=== PATIENT | female | born 1955 | race Caucasian/White ===

== ENCOUNTER → 2018-06-13 11:36 | Outpatient (CLI) | payer OTHER, SELFPAY ==
--- NOTE | 2018-06-13 | DI.RAD.S_ITS ---
PROCEDURE: XR HIP W PEL IF DONE BILAT 2V INDICATIONS: HIP PAIN TECHNIQUE: AP pelvis with lateral view(s) of the bilateral hip(s). COMPARISON: [facility], , HIP 2V LEFT, 04/12/2012, 15:01. FINDINGS: Bones: No fractures or dislocations. Pelvic ring appears intact. No suspicious bony lesions. Left worse than right bilateral hip joint osteoarthritis is seen with superior joint space narrowing and subchondral sclerosis. No evidence of avascular necrosis. Soft tissues: The visualized bowel gas pattern is normal. No suspicious soft tissue calcifications. IMPRESSION: Left worse than right bilateral hip joint osteoarthritis. Dictated by: Elijah Espinoza M.D. on 06/13/2018 at 12:37 Approved by: Elijah Espinoza M.D. on 06/13/2018 at 12:38
== END ==
PROVIDERS: PCP Internal Medicine; Visit Provider Internal Medicine
DX: M16.0 Bilateral primary osteoarthritis of hip (principal)
CPT/HCPCS: 73521

== ENCOUNTER → 2019-10-04 16:39 | Outpatient (CLI) | payer OTHER, SELFPAY ==
--- NOTE | 2019-10-04 | DI.MG.S_ITS ---
BILATERAL DIGITAL SCREENING MAMMOGRAM 3D/2D WITH CAD: 10/04/2019 CLINICAL: Routine screening. Comparison is made to exams dated: 11/23/2016 mammogram, 07/21/2012 mammogram, and 07/16/2011 mammogram - [facility]. The tissue of both breasts is predominantly fatty. Current study was also evaluated with a Computer Aided Detection (CAD) system. No significant masses, calcifications, or other findings are seen in either breast. There has been no significant interval change. IMPRESSION: NEGATIVE There is no mammographic evidence of malignancy. A 1 year screening mammogram is recommended. This exam was interpreted at Station ID: [id number]. NOTE: For mammograms, a report in lay terms will be sent to the patient. Approximately 15% of breast malignancies will not be visualized mammographically. In the management of a palpable breast mass, a negative mammogram must not discourage biopsy of a clinically suspicious lesion. Electronically Signed By: Dionne low/shelton:10/05/2019 07:22:07 letter sent: Normal Exam ACR BI-RADS Category 1: Negative 3341F
== END ==
PROVIDERS: PCP Internal Medicine; Visit Provider Internal Medicine
DX: Z12.31 Encounter for screening mammogram for malignant neoplasm of breast (principal)
CPT/HCPCS: 77063; 77067

== ENCOUNTER → 2020-05-30 08:16 | Outpatient (CLI) | payer OTHER, SELFPAY ==
--- NOTE | 2020-05-30 | DI.RAD.S_ITS ---
PROCEDURE: XR CHEST 2V INDICATIONS: COUGH TECHNIQUE: 2 views of the chest were acquired. COMPARISON: [facility], , CHEST 1 VIEW, 03/23/2016, 17:06. FINDINGS: Surgical changes and devices: None. Lungs and pleura: Lungs are clear. No pleural effusions or pneumothorax. Mediastinum: Mediastinal contours are normal. Heart size is normal. Bones and chest wall: No suspicious bony abnormalities. Chronic right rib fractures. Soft tissues appear unremarkable. IMPRESSION: No acute disease. Dictated by: Mata Owens M.D. on 05/30/2020 at 10:38 Approved by: Mata Owens M.D. on 05/30/2020 at 10:39
[2020-05-30 09:34] LABS: Add Manual Diff / Slide Review NO; Basophils Absolute Auto 0 /uL (0-100); Basophils Percent Auto 0.7 % (0-2); Eosinophils Absolute Auto 100 /uL (0-450); Eosinophils Percent Auto 2.3 % (2-4); Hematocrit 39.5 % (36-46); Hemoglobin 13.5 g/dL (12.0-16.0); Lymphocytes Absolute Auto 1300 /uL (1100-4500); Mean Corpuscular HGB Conc 34.2 % (30-36); Mean Corpuscular Volume 84.8 fL (80-100); Monocytes Absolute Auto 400 /uL (0-900); Monocytes Percent Auto 7.7 % (3-14); Neutrophils Absolute Auto 2900 /uL (1500-7000); Neutrophils Percent Auto 61.3 % (50-75); Platelet Count 229 X10^3/uL (150-400); Red Blood Cell Count 4.67 X10^6/uL (4.0-5.2); Red Cell Distribution Width 14.9 % (11.6-14.8); White Blood Cell Count 4.8 X10^3/uL (4.5-11.0)
[2020-05-30 10:03] LABS: HEMOLYSIS < 15 (0-50); Iron 90 ug/dL (37-170)
[2020-05-30 10:04] LABS: Alanine Aminotransferase 33 IU/L (<35); Albumin 4.4 g/dL (3.5-5.0); Albumin Globulin Ratio 1.6 (1.0-2.8); Alkaline Phosphatase 121 U/L (38-126); Aspartate Aminotransferase 30 IU/L (14-36); BUN Creatinine Ratio 23.2 (6-22); Bilirubin Total 0.6 mg/dL (0.2-1.3); Blood Urea Nitrogen 16 mg/dL (7-17); Calcium 9.7 mg/dL (8.4-10.2); Carbon Dioxide 30 mmol/L (22-32); Chloride 102 mmol/L (98-107); Cholesterol 181 mg/dL (140-199); Estimated Glomerular Filt Rate > 60.0 mL/min (>60); Globulin 2.8 g/dL (1.7-4.1); Glucose 96 mg/dL (80-110); HDL Cholesterol 67 mg/dL (40-60); HEMOLYSIS < 15 (0-50); LDL Cholesterol Calculated 96 mg/dL (<100); Potassium 5.1 mmol/L (3.4-5.1); Sodium 138 mmol/L (137-145); Total Protein 7.2 g/dL (6.3-8.2); Triglycerides 88 mg/dL (35-150)
[2020-05-30 10:16] LABS: Percent Iron Saturation 24 % (15-50); Total Iron Binding Capacity 376 ug/dL (265-497); Transferrin 309 mg/dL (206-381)
== END ==
PROVIDERS: PCP Internal Medicine; Referring Provider Internal Medicine; Visit Provider Internal Medicine
DX: R07.9 Chest pain, unspecified (principal); D64.9 Anemia, unspecified; R05 Cough
CPT/HCPCS: 36415; 71046; 80053; 80061; 83540; 83550; 85025

== ENCOUNTER → 2021-12-29 13:18 | Outpatient (CLI) | payer MEDICARE, OTHER, SELFPAY ==
--- NOTE | 2021-12-29 | DI.MG.S_ITS ---
BILATERAL DIGITAL SCREENING MAMMOGRAM 3D/2D WITH CAD: 12/29/2021 CLINICAL: Routine screening. Comparison is made to exams dated: 10/04/2019 mammogram, 11/23/2016 mammogram, and 07/21/2012 mammogram - [facility]. The tissue of both breasts is predominantly fatty. Current study was also evaluated with a Computer Aided Detection (CAD) system. No significant masses, calcifications, or other findings are seen in either breast. There has been no significant interval change. IMPRESSION: NEGATIVE There is no mammographic evidence of malignancy. A 1 year screening mammogram is recommended. This exam was interpreted at Station ID: [id number]. NOTE: For mammograms, a report in lay terms will be sent to the patient. Approximately 15% of breast malignancies will not be visualized mammographically. In the management of a palpable breast mass, a negative mammogram must not discourage biopsy of a clinically suspicious lesion. Electronically Signed By: Duke pagan/shelton:12/29/2021 16:53:47 letter sent: Normal Exam ACR BI-RADS Category 1: Negative 3341F
== END ==
PROVIDERS: PCP Family Medicine; Referring Provider Family Medicine; Visit Provider Family Medicine
DX: Z12.31 Encounter for screening mammogram for malignant neoplasm of breast (principal)
CPT/HCPCS: 77063; 77067

== ENCOUNTER → 2022-01-17 15:37 | Outpatient (CLI) | payer MEDICARE, OTHER, SELFPAY ==
[2022-01-17 16:26] LABS: COVID19 -Nasal RAPID Negative (Negative)
== END ==
PROVIDERS: PCP Family Medicine; Visit Provider Physician Assistant
DX: Z20.822 Contact with and (suspected) exposure to COVID-19 (principal)
CPT/HCPCS: 87635

== ENCOUNTER 2022-01-19 13:18 | Day surgery (SDC) | payer MEDICARE, OTHER, SELFPAY ==
--- NOTE | 2022-01-19 13:07 | P.HP_ITS ---
History of Present Illness History of Present Illness Date Patient Seen: 01/19/22 Chief complaint: SCREENING COLONOSCOPY Narrative: 66 year old female comes in today for consideration of a screening colonoscopy. One previous colonoscopy about 10 years ago, unsure of the results but was told that she had a 10 year recall. There have been no lower GI symptoms suggesting disease such as change in bowel habits, bleeding, abdominal pain or anemia. There's been no family history of colon cancer or colon polyps. Overall health issues have been stable, including no major cardiac events for at least 6 weeks. PCP: Dr. Venegas Past medical history: Glaucoma Eczema Past surgical history: Colonoscopy Anal fissure repair secondary to constipation Family History: Father: Heart Disease Mother: HTN, Hyperlipidemia Social History: Marital Status: Children: Occupation: Day Trader- [employer] Household Members: Josemanuel (57 Education: 1 year college Alcohol drinks/day: <1/day Caffeine use/day: 2 Guns in home: yes Dental Care w/in 6 mos.: yes Sun Exposure: occasionally Seat Belt Use: yes Smoking Status: never smoker Drug Use: marijuana gummies Meds Home Medications and Allergies Home Medications Medication Instructions Recorded Confirmed Type No Known Home Medications 01/18/22 01/18/22 History Allergies Allergy/AdvReac Type Severity Reaction Status Date / Time hydrocodone [HYDROCODONE] AdvReac Unknown VOMIT Unverified 01/25/18 13:08 Review of Systems Review of Systems Narrative: All remaining ROS were reviewed and negative except as addressed. Exam Narrative Exam Narrative: GENERAL: Alert and oriented, appearing stated age and in no acute distress. HEENT: Head normocephalic/atraumatic. Extraocular movements intact. LUNGS: Clear to ausculation bilaterally, no wheezes, rhonchi or rales. CV: Normal S1 and S2 with regular rate and rhythm, no audible murmurs, rubs or gallops. ABDOMEN: Soft, non-tender, non-distended, no organomegaly. Positive bowel sounds. EXTREMITIES: No clubbing, cyanosis, or edema. NEURO: Cranial nerves II through XII grossly intact, no focal deficits. PSYCH: Alert and oriented x 3. SKIN: No concerning lesions. Assessment & Plan Assessment & Plan narrative: 1. Screening for colon cancer Plan for colonoscopy. The nature and character of the procedure as well as anticipated results were discussed. The possibility of not completing the procedure was also discussed. Possible complications including aspiration pneumonia, bleeding, perforation and reaction to medications either for sedation or preparation and missed lesions were discussed. Questions were answered and proceeding to the colonoscopy was elected. Informed consent signed. I sincerely appreciate the referral allowing me to participate in this patient's care. Please contact me with any questions or concerns.
--- NOTE | 2022-01-19 13:10 | PM.OP.COLON ---
Operative Date/Time/Diagnoses Date of procedure: 01/19/22 Procedure Notes SCOAP/Timeout: 2:38 p.m. Procedure in detail: ENDOSCOPIST: Yanni Partida MD Sedation RN: Benita Cowan RN Sedation start time: 2:39 p.m. Sedation end time: 3:03 p.m. PROCEDURE: Colonoscopy INDICATIONS: 1. Screening for colon cancer MEDICATION: Levsin 0.125 mg sublingual, incremental doses of Versed and fentanyl until appropriate level sedation achieved. ASA CLASS: 1 CECAL WITHDRAWAL TIME: 6 minutes COMPLICATIONS: None. EXTENT OF PROCEDURE: Cecum. QUALITY OF PREP: Good with portions of liquid stool. PROCEDURE: Prior to insertion of the colonoscope, a digital rectal examination was accomplished with circumferential palpation of the distal rectal mucosa without significant findings being noted. The high-definition pediatric colonoscope was passed into the rectum in the usual fashion and advanced over to the cecum without difficulty. The ileocecal valve, appendiceal stoma, and medial wall all could be inspected and no abnormalities were seen. ASCENDING COLON: As the colonoscope was withdrawn, care was taken to expose and inspect the haustral folds and no abnormalities were seen. HEPATIC FLEXURE: Normal, no polyps, diverticula or other abnormalities. TRANSVERSE COLON: Normal, no polyps, diverticula or other abnormalities. DESCENDING COLON: Minor diverticulosis, otherwise normal, no polyps, or other abnormalities. SIGMOID COLON: Minor diverticulosis, otherwise normal, no polyps, or other abnormalities. RECTUM: Normal. J maneuver was produced. There was no significant perianal disease. The J maneuver was broken. The remainder of the rectum was inspected and there was no external hemorrhoid disease. The scope was withdrawn. IMPRESSION: 1. Normal colonoscopy 2. Left-sided diverticulosis PLAN: 1. Repeat colonoscopy in 10 years. The possibility of a missed lesion including a malignancy has been discussed with the patient previously. Potential alarm symptoms have been discussed and should be reported immediately.
[2022-01-19] MEDS: LACTATED RINGERS 1,000 ML 200 ML IV (13:34)
[2022-01-19] MEDS: HYOSCYAMINE 0.125 MG TABLET PO (13:34)
[2022-01-19 13:38] VITALS: BP 135/68; PULSE 65; RESP 14; TEMP 36.8; O2SAT 99; BMI 28.3
[2022-01-19 13:54] VITALS: BMI 28.3
[2022-01-19] MEDS: ONDANSETRON 4 MG/2 ML INJ IV (14:38)
[2022-01-19] MEDS: fentaNYL 250 MCG/5 ML INJ IV (14:39)
[2022-01-19] MEDS: MIDAZOLAM 5 MG/5 ML VIAL IV (14:39)
[2022-01-19 15:10] VITALS: BP 104/52; PULSE 52; RESP 15; TEMP 37.2; O2SAT 92
[2022-01-19 15:15] VITALS: BP 104/53; PULSE 55; RESP 16; O2SAT 94
[2022-01-19 15:18] VITALS: BP 108/54; PULSE 51; RESP 14; O2SAT 94
[2022-01-19 15:31] VITALS: BP 112/56; PULSE 50; RESP 14; O2SAT 98
== END 2022-01-19 15:41 | disposition home or self-care (01) ==
PROVIDERS: PCP Family Medicine; Referring Provider Student in an Organized Health Care Education/Training Program; Visit Provider Student in an Organized Health Care Education/Training Program
PROC: 0DJD8ZZ Inspection of Lower Intestinal Tract, Via Natural or Artificial Opening Endoscopic (ICD-10-PCS; CPT 45378; principal; 2022-01-19 14:30)
DX: Z12.11 Encounter for screening for malignant neoplasm of colon (principal); K57.30 Diverticulosis of large intestine without perforation or abscess without bleeding
CPT/HCPCS: G0121; J2250; J2405; J3010

== ENCOUNTER → 2022-06-23 13:48 | Outpatient (CLI) | payer MEDICARE, OTHER, SELFPAY ==
--- NOTE | 2022-06-23 13:53 | DI.NM.S_ITS ---
PROCEDURE: NM EXERCISE TREADMILL NON NUC COMPARISON: None. 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 Double product was 19938, consistent with adequate stress test. Patient developed 5/10 chest discomfort during exercise that resolved 5 minutes into recovery. No diagnostic ST changes during the study. Frequent PVCs (including couplets) during recovery. Occasional PACs during recovery. IMPRESSION: Equivocal stress test given chest pain with exercise without diagnostic ST changes. Frequent PVCs during recovery. Adequate stress [place] [address]. Recommend treadmill nuclear stress test or cardiology consult for further evaluation of chest pain (correlate clinically). Dictated by: Frederick Rowland MD on 06/24/2022 at 13:20 Approved by: Frederick Rowland MD on 06/24/2022 at 13:24
[2022-06-23 15:22] LABS: COVID19 -Nasal RAPID Negative (Negative)
== END ==
PROVIDERS: PCP Family Medicine; Referring Provider Family Medicine; Visit Provider Family Medicine
DX: I49.3 Ventricular premature depolarization (principal); R00.0 Tachycardia, unspecified; I02.9 Rheumatic chorea without heart involvement; Z20.822 Contact with and (suspected) exposure to COVID-19; M85.852 Other specified disorders of bone density and structure, left thigh; M85.88 Other specified disorders of bone density and structure, other site; Z78.0 Asymptomatic menopausal state
CPT/HCPCS: 77080; 87635; 93017; C9803

== ENCOUNTER → 2022-07-27 08:44 | Outpatient (CLI) | payer MEDICARE, OTHER, SELFPAY ==
--- NOTE | 2022-07-27 | DI.NM.S_ITS ---
PROCEDURE: NM GINGER PERF SPECT R&S PHARM Rest and pharmacological stress myocardial perfusion SPECT with gated imaging and ejection fraction RADIOPHARMACEUTICAL: 12.9 mCi Tc-99m tetrafosmin IV at rest and 25.9 mCi Tc-99m tetrafosmin IV at peak effect of pharmacological stress. [id number] was performed. INDICATIONS: Tachycardia, unspecified;Angina pectoris TECHNIQUE: Radiopharmaceutical was injected at peak stress test, and also at rest. SPECT images were obtained. SPECT myocardial perfusion images were displayed in short axis, horizontal long axis, and vertical long axis views. Gated images were reviewed using Nanushka software. COMPARISON: None. CARDIAC STRESS: A pharmacologic stress test was performed under the supervision of an attending staff, using an infusion of lexiscan. Hemodynamic data: There is normal blood pressure and heart rate response to pharmacologic stress. Symptoms: The patient developed chest pain with exercise and, thus, requested the study to be switched to lexiscan at 6 minutes and 6 seconds terry. Aminophylline: none EKG: No diagnostic changes of ischemia; no ectopy. FINDINGS: Raw data: There is good myocardial uptake of radiotracer. No significant motion artifacts. Hdbo-bl-uhbsq ratio is 0.34 (normal is less than 0.38 for tetrafosmin tracer). Left ventricle function: Gated images demonstrate normal left ventricular wall thickening. No segmental wall motion abnormalities. No transient ischemic dilation; TID is 0.86 (normal less than 1.3). Left ventricle resting end diastolic volume is 83 mL. Left ventricle stress ejection fraction is 74%; normal range is above 45%. Myocardial perfusion: There is a mildly intense inferior wall defect at rest that worsens to severe on post stress images, suggesting prior small infarction and significant ischemia. The worsened inferior wall defect persists on prone imaging. SSS 12. SRS calculation is inaccurate due to artifacts in the anterior wall. IMPRESSION: Abnormal pharmaceutical nuclear stress test consistent with prior small infarction and significant ischemia. 1) There is a mildly intense inferior wall defect at rest that worsens to severe on post stress images, suggesting prior small infarction and significant ischemia. The worsened inferior wall defect persists on prone imaging. 2) Normal left ventricular size, wall motion, and systolic function (EF post stress 74%). 3) No ST changes with exercise. 4) Chest pain with exercise and, thus, the patient requested that the study be switched to lexiscan at 6 minutes and 6 seconds terry (7.0 METs). 5) No prior nuclear stress test available for comparison. Recommend cardiology consult. Dictated by: Frederick Rowland MD on 07/28/2022 at 14:01 Approved by: Frederick Rowland MD on 07/28/2022 at 14:08
[2022-07-27 10:00] LABS: COVID19 -Nasal RAPID Negative (Negative)
== END ==
PROVIDERS: PCP Family Medicine; Referring Provider Family Medicine; Visit Provider Family Medicine
DX: I20.9 Angina pectoris, unspecified (principal); R94.39 Abnormal result of other cardiovascular function study; R00.0 Tachycardia, unspecified; Z20.822 Contact with and (suspected) exposure to COVID-19
CPT/HCPCS: 78452; 87635; 93017; A9502; J2785

== ENCOUNTER → 2022-07-30 14:13 | Outpatient (CLI) | payer MEDICARE, OTHER, SELFPAY ==
[2022-07-30 15:21] LABS: COVID19 -Nasal RAPID Negative (Negative)
[2022-07-30 15:45] LABS: Add Manual Diff / Slide Review NO; Basophils Absolute Auto 0 /uL (0-100); Basophils Percent Auto 0.7 % (0-2); Eosinophils Absolute Auto 100 /uL (0-450); Eosinophils Percent Auto 1.9 % (2-4); Hematocrit 38.9 % (36-46); Hemoglobin 13.6 g/dL (12.0-16.0); Lymphocytes Absolute Auto 1300 /uL (1100-4500); Lymphocytes Percent Auto 22.1 % (25-40); Mean Corpuscular HGB Conc 34.9 % (30-36); Mean Corpuscular Hemoglobin 29.8 PG (26-34); Mean Corpuscular Volume 85.3 fL (80-100); Monocytes Absolute Auto 300 /uL (0-900); Monocytes Percent Auto 4.9 % (3-14); Neutrophils Absolute Auto 4200 /uL (1500-7000); Neutrophils Percent Auto 70.4 % (50-75); Platelet Count 199 X10^3/uL (150-400); Red Blood Cell Count 4.56 X10^6/uL (4.0-5.2)
[2022-07-30 16:06] LABS: BUN Creatinine Ratio 17.7 (6-22); Blood Urea Nitrogen 11 mg/dL (7-17); Calcium 8.7 mg/dL (8.4-10.2); Carbon Dioxide 30 mmol/L (22-32); Chloride 102 mmol/L (98-107); Estimated Glomerular Filt Rate > 60 mL/min (>60); Glucose 133 mg/dL (80-110); HEMOLYSIS < 15 (0-50); Potassium 3.9 mmol/L (3.4-5.1); Sodium 139 mmol/L (137-145)
== END ==
PROVIDERS: PCP Family Medicine; Referring Provider Internal Medicine Cardiovascular Disease; Visit Provider Internal Medicine Cardiovascular Disease
DX: R94.39 Abnormal result of other cardiovascular function study (principal); Z20.822 Contact with and (suspected) exposure to COVID-19
CPT/HCPCS: 36415; 80048; 85025; 87635; C9803

== ENCOUNTER → 2023-01-10 14:54 | Outpatient (CLI) | payer MEDICARE, OTHER, SELFPAY ==
[2023-01-11 05:00] LABS: Alanine Aminotransferase 29 IU/L (<35); Albumin 4.2 g/dL (3.5-5.0); Albumin Globulin Ratio 1.6 (1.0-2.8); Alkaline Phosphatase 104 U/L (38-126); Aspartate Aminotransferase 26 IU/L (14-36); Bilirubin Total 0.4 mg/dL (0.2-1.3); Globulin 2.6 g/dL (1.7-4.1); HEMOLYSIS < 15 (0-50); Total Protein 6.8 g/dL (6.3-8.2)
== END ==
PROVIDERS: PCP Family Medicine; Referring Provider Podiatrist Foot & Ankle Surgery; Visit Provider Podiatrist Foot & Ankle Surgery
DX: L60.3 Nail dystrophy (principal); B35.1 Tinea unguium
CPT/HCPCS: 36415; 80076

== ENCOUNTER → 2023-03-28 07:58 | Outpatient (CLI) | payer MEDICARE, OTHER, SELFPAY ==
[2023-03-28 09:15] LABS: Add Manual Diff / Slide Review NO; Basophils Absolute Auto 0 /uL (0-100); Eosinophils Absolute Auto 100 /uL (0-450); Eosinophils Percent Auto 2.4 % (2-4); Hematocrit 39.4 % (36-46); Hemoglobin 13.5 g/dL (12.0-16.0); Lymphocytes Absolute Auto 1300 /uL (1100-4500); Lymphocytes Percent Auto 25.9 % (25-40); Mean Corpuscular HGB Conc 34.4 % (30-36); Mean Corpuscular Hemoglobin 29.5 PG (26-34); Mean Corpuscular Volume 85.8 fL (80-100); Monocytes Absolute Auto 400 /uL (0-900); Monocytes Percent Auto 7.5 % (3-14); Neutrophils Absolute Auto 3100 /uL (1500-7000); Neutrophils Percent Auto 63.2 % (50-75); Platelet Count 228 X10^3/uL (150-400); Red Blood Cell Count 4.59 X10^6/uL (4.0-5.2); Red Cell Distribution Width 14.3 % (11.6-14.8); White Blood Cell Count 4.8 X10^3/uL (4.5-11.0)
[2023-03-28 09:38] LABS: BUN Creatinine Ratio 21.5 (6-22); Blood Urea Nitrogen 14 mg/dL (7-17); Calcium 9.6 mg/dL (8.4-10.2); Carbon Dioxide 30 mmol/L (22-32); Chloride 103 mmol/L (98-107); Cholesterol 152 mg/dL (140-199); Estimated Glomerular Filt Rate > 60 mL/min (>60); Glucose 93 mg/dL (80-110); HDL Cholesterol 66 mg/dL (40-60); HEMOLYSIS < 15 (0-50); LDL Cholesterol Calculated 61 mg/dL (<100); Potassium 4.6 mmol/L (3.4-5.1); Sodium 140 mmol/L (137-145); Triglycerides 127 mg/dL (35-150)
== END ==
PROVIDERS: PCP Family Medicine; Referring Provider Internal Medicine Cardiovascular Disease; Visit Provider Internal Medicine Cardiovascular Disease
DX: E78.5 Hyperlipidemia, unspecified (principal); I25.10 Atherosclerotic heart disease of native coronary artery without angina pectoris
CPT/HCPCS: 36415; 80048; 80061; 85025

== ENCOUNTER → 2023-06-06 12:16 | Outpatient (CLI) | payer MEDICARE, OTHER, SELFPAY ==
--- NOTE | 2023-06-06 | DI.RAD.S_ITS ---
PROCEDURE: XR HAND RT MIN 3V INDICATIONS: arthritis TECHNIQUE: 3 views of the hand(s) acquired. COMPARISON: None. FINDINGS: Bones: No fractures or dislocations. Carpal bones are normally aligned. No suspicious bony lesions. Diffuse osteopenia. No other findings which might suggest an inflammatory arthritis. Degenerative arthritis involving the thumb MCP and IP joints. Mild degenerative arthritis involving the 3rd finger PIP and DIP joints. Degenerative arthritis involving the 5th finger PIP and DIP joints. Soft tissues: No suspicious soft tissue calcifications. IMPRESSION: Degenerative arthritis. Osteopenia. Dictated by: Regan Bueno M.D. on 06/06/2023 at 17:41 Approved by: Regan Bueno M.D. on 06/06/2023 at 17:43
--- OUTSIDE RECORDS SUMMARY | 2023-09-16 15:04 | XMS_ITS | Referral Summary ---
Author Name Unknown Organization [facility] Address [address] [place] [address] Care Team Providers Care News Writer Name Role Phone Eric Venegas MD Primary Care Provider Reason for Referral * Diagnostic Imaging (Routine) - Pending Review Specialty Diagnoses / Procedures Referred By Contac t Referred To Contact Radiology Diagnoses ASHD (arteriosclerotic heart disease) History of heart artery stent RIOJAS (dyspnea on exertion) Procedures ECHOCARDIOGRAM STRESS ISCHEMIA Frederick Rowland MD [address] [place] [address] [address] [place] [address] Referral ID Status Reason Start Date Expiration Date Visits Requested Visits Authorized [id number] Pending Review Specialty Services Required 04/07/2023 04/01/2024 1 1 * - Authorized Specialty Diagnoses / Procedures Referred By Contsurjit t Referred To Contact Cardiac Rehabilitation Diagnoses ASHD (arteriosclerotic heart disease) Frederick Rowland MD [address] [place] [address] [address] [place] [address] [id number] Referral ID Status Reason Start Date Expiration Date V isits Requested Visits Authorized [id number] Authorized 04/07/2023 04/01/2024 1 1 Reason for Visit * Reason Comments Follow-up Encounter Details Date Type Department Care Team Description 04/07/2023 Office Visit [facility] [address], [place] [id number] Frederick Rowland MD [address] [place] [address] [address] [place] [address] ASHD (arteriosclerotic heart disease) (Primary Dx); History of heart artery stent; Hyperlipidemia, unspecified hyperlipidemia type; Family history of ischemic heart disease; RIOJAS (dyspnea on exertion) Allergies Active Allergy Reactions Severity Noted Date Comments Hydrocodone Bitartrate 10/28/2015 Hydrocodone-Acetaminophen Nausea And Vomiting Low 0 05/06/2021 documented as of this encounter (statuses as of 04/07/2023) Medications Medication Sig Dispensed Refills Start Date End Date Status timolol (TIMOPTIC) 0.5 % ophthalmic solution 2 (two) times a day 0 Active latanoprost (XALATAN) 0.005 % ophthalmic solution one drop each eye once daily 0 Active desoximetasone (TOPICORT) 0.05 % cream 1 application as needed 0 Active multivitamin (THERAGRAN) tablet tablet Take 1 tablet by mouth daily 0 Active nitroglycerin (NITROSTAT) 0.[address] 1 tablet (0.4 mg total) under the tongue every 5 (five) minutes as needed for chest pain 25 tablet 11 07/29/2022 07/29/20 23 Active aspirin 81 mg chewable tablet Take 1 tablet (81 mg total) by mouth daily 90 tablet 3 07/29/2022 07/29/20 23 Active terbinafine (LamiSIL) 250 mg tablet Take 1 pill per day by mouth for 1 week. Rest for 1 month. Repeat for 6 months. 84 tablet 0 01/12/2023 Active rosuvastatin (CRESTOR) 5 mg tablet Take 1 tablet (5 mg total) by mouth daily 90 tablet 3 04/07/2023 04/06/20 24 Active metoprolol succinate XL (TOPROL-XL) 25 mg 24 hr tablet Take 1 tablet (25 mg total) by mouth daily 90 tablet 3 04/07/2023 04/06/20 24 Active rosuvastatin (CRESTOR) 5 mg tablet Take 1 tablet (5 mg total) by mouth daily 0 06/02/2022 04/07/20 23 Discontinued(Reo rder) metoprolol succinate XL (TOPROL-XL) 25 mg 24 hr tablet daily 0 07/29/2022 04/07/20 23 Discontinued(Reo rder) clopidogreL (PLAVIX) 75 mg tablet Take 1 tablet (75 mg total) by mouth daily 90 tablet 3 08/02/2022 04/07/20 23 Discontinued documented as of this encounter (statuses as of 04/07/2023) Active Problems No known active problems documented as of this encounter (statuses as of 04/07/2023) Social History Tobacco Use Types Packs/Day Years Used Date Smoking Tobacco: Never Smokeless Tobacco: Never Alcohol Use Standard Drinks/Week Comments Yes 10 (1 standard drink = 0.6 oz pu re alcohol) Sex Assigned at Date Recorded Female 07/30/2022 8:10 PM P DT Job Start Date Occupation Industry Not on file Not on file Not on file documented as of this encounter Last Filed Vital Signs Vital Sign Reading Time Taken Comments Blood Pressure 128/84 04/07/2023 1:48 PM PDT Pulse 52 04/07/2023 1:16 PM PDT Temperature - - Respiratory Rate - - Oxygen Saturation - - Inhaled Oxygen Concentration - - Weight 81.6 kg (180 lb) 04/07/2023 1:16 PM PDT Height 165.1 cm (5' 5) 04/07/2023 1:16 PM PDT Body Mass Index 29.95 04/07/2023 1:16 PM PDT documented in this encounter Progress Notes * Frederick Rowland MD - 04/07/2023 1:20 PM PDT Ok to stop clopidogrel when you finish your current supply. * Frederick Rowland MD - 04/07/2023 1:20 PM PDT Subjective Patient ID: Melvi Teresa is a 67 y.o. female that presents today for had concerns including Follow-up. HPI: 66 yo W here h/o CAD here for F/U on her CAD. She is here with her . Since her last visit, she has done well. She has random non-exertional chest pains that last few minutes before self resolving. These pains are different than the exertional chest pain she had prior to stent placement in 07/2022. She has mild dyspnea while climbing up a flight of stairs. Denies heart racing sensations, lightheadedness or syncope. PROBLEM LIST: # CAD S/P SHELLIE to dRCA, 50-60% stenosis in the mLCx on 07/2022. Family history of early cardiac in sister ( in her 40s). Dad had OR in his 40s. Social History Socioeconomic History ??? Marital status: Tobacco Use ??? Smoking status: Never ??? Smokeless tobacco: Never Substance and Sexual Activity ??? Alcohol use: Yes Alcohol/week: 10.0 standard drinks Types: 10 Glasses of wine per week ??? Drug use: Yes Types: Marijuana Allergies Allergen Reactions ??? Hydrocodone Bitartrate ??? Hydrocodone-Acetaminophen Nausea And Vomiting Current Medication List Sig aspirin 81 mg chewable tablet Take 1 tablet (81 mg total) by mouth daily desoximetasone (TOPICORT) 0.05 % cream 1 application as needed latanoprost (XALATAN) 0.005 % ophthalmic solution one drop each eye once daily multivitamin (THERAGRAN) tablet tablet Take 1 tablet by mouth daily nitroglycerin (NITROSTAT) 0.[address] 1 tablet (0.4 mg total) under the tongue every 5 (five) minutes as needed for chest pain terbinafine (LamiSIL) 250 mg tablet Take 1 pill per day by mouth for 1 week. Rest for 1 month. Repeat for 6 months. timolol (TIMOPTIC) 0.5 % ophthalmic solution 2 (two) times a day clopidogreL (PLAVIX) 75 mg tablet (Discontinued) Take 1 tablet (75 mg total) by mouth daily metoprolol succinate XL (TOPROL-XL) 25 mg 24 hr tablet (Discontinued) daily rosuvastatin (CRESTOR) 5 mg tablet (Discontinued) Take 1 tablet (5 mg total) by mouth daily metoprolol succinate XL (TOPROL-XL) 25 mg 24 hr tablet Take 1 tablet (25 mg total) by mouth daily rosuvastatin (CRESTOR) 5 mg tablet Take 1 tablet (5 mg total) by mouth daily Review of Systems Constitutional: Negative for fatigue and unexpected weight change. Eyes: Negative for visual disturbance. Respiratory: Positive for shortness of breath. Negative for chest tightness. Cardiovascular: Positive for chest pain. Negative for palpitations and leg swelling. Gastrointestinal: Negative for blood in stool. Endocrine: Negative for polydipsia. Genitourinary: Negative for hematuria. Skin: Negative for rash. Neurological: Negative for dizziness, weakness and light-headedness. Hematological: Does not bruise/bleed easily. Psychiatric/Behavioral: The patient is not nervous/anxious. All other systems reviewed and are negative. Objective BP 128/84 (BP Location: Left arm, Patient Position: Sitting) Pulse (!) 52 Ht 1.651 m Wt 81.6 kg BMI 29.95 kg/m?? Physical Exam: General appearance: No apparent distress, well-nourished, pleasant, cooperative HEET: Normocephalic atraumatic, no scleral icterus, tongue midline, mucous membranes moist Neck: supple Cardiovascular: RRR, normal S1 and normal S2, no murmurs/ rubs/gallops, PMI nondisplaced, no JVD, no peripheral edema Respiratory: Good aeration, CTAB Abdomen: Soft, nontender, nondistended, + bowel sounds Neuro: Alert, no facial droop, tongue midline, no gross motor deficits Psych: appropriate affect Skin: no rashes on face, neck, and lower extremities Cath 08/02/2022: SHELLIE to dRCA, 50-60% stenosis in the mLCx. Nuc stress at 07/28/2022. Abnormal pharmaceutical nuclear stress test consistent with prior small infarction and significant ischemia. 1. There is a mildly intense inferior wall defect at rest that worsens to severe on post stress images, suggesting prior small infarction and significant ischemia. The worsened inferior wall defect persists on prone imaging. 2. Normal left ventricular size, wall motion, and systolic function (EF post stress 74%). 3. No ST changes with exercise. 4. Chest pain with exercise and, thus, the patient requested that the study be switched to lexiscanat 6 minutes and 6 seconds terry (7.0 METs). 5. No prior nuclear stress test available for comparison. Labs 11/18/2021: WBC 4.9, RBC 4.5, hemoglobin 13.2, hematocrit 38.9, platelet 236, TSH 2.82, total cholesterol 182, HDL 71, triglycerides 69, LDL 97, sodium 140, potassium 4.5, chloride 104, CO2 30, anion gap 6, glucose 61, BUN 13, creatinine 0.66, calcium 9.4, AST 16, ALT 16 Labs 03/28/2023: sodium 140, potassium 4.6, chloride 103, cO2, CO2 30, BUN 14, Cr 0.65, TG 127, TC 152, HDL 66, LDL 61, WBC 4.8, Hct 39.4, Plt 228 Assessment/Plan Comments: 1. ASHD (arteriosclerotic heart disease) Ambulatory Referral to Cardiac Rehabilitation, ECHOCARDIOGRAM STRESS ISCHEMIA 2. History of heart artery stent ECHOCARDIOGRAM STRESS ISCHEMIA 3. Hyperlipidemia, unspecified hyperlipidemia type 4. Family history of ischemic heart disease 5. RIOJAS (dyspnea on exertion) ECHOCARDIOGRAM STRESS ISCHEMIA # CAD s/p SEHLLIE to dRCA, 50-60% stenosis in the mLCx on 07/2022. Angina resolved after PCI. Plan: - Continue aspirin 81mg daily - Stop clopidogrel 75mg daily once out of the current bottle as it has been more than 6 months since the elective PCI - Continue rosuvastatin 5mg at bedtime - Continue metoprolol XL 12.5mg daily - Continue nitro SL PRN chest pain - Refer to cardiac rehab F/U in 6 months with stress echo. Electronically signed by Frederick Rowland MD 04/07/2023 1:48 PM documented in this encounter Plan of Treatment Upcoming Encounters Date Type Specialty Care Team Description 10/14/2023 Office Visit Cardiology Frederick Rowland MD [address] [place] [id number] Scheduled Orders Name Type Priority Associated Diagnoses Orde r Schedule ECHOCARDIOGRAM STRESS ISCHEMIA Imaging Routine ASHD (arteriosclerotic heart disease) History of heart artery stent RIOJAS (dyspnea on exertion) Expected: 10/07/2023, Expires: 04/07/2025 Scheduled Referrals Name Type Priority Associated Diagnoses Order Schedule Ambulatory Referral to Cardiac Rehabilitation Outpatient Referral Routine ASHD (arteriosclerotic heart disease) Ordered: 04/07/2023 documented as of this encounter Medical Devices Implanted Type Area Records Coordinator Device Identifier Shelf Expiration Date Model / Serial / Lot Stent, [id number] [place] - [id number] Implanted:Qty: 1 on 08/02/2022 at [facility] [employer] [id number] X / / documented as of this encounter Visit Diagnoses Diagnosis ASHD (arteriosclerotic heart disease)- Primary Coronary atherosclerosis of unspecified type of vessel, [place] or graft History of heart artery stent Hyperlipidemia, unspecified hyperlipidemia type Family history of ischemic heart disease RIOJAS (dyspnea on exertion) Other dyspnea and respiratory abnormality documented in this encounter Advance Directives Latest Code Status on File Code Status Date Activated Date Inactivated Comments Full Code 08/02/2022 3:11 PM 08/03/2022 2:34 AM Care Teams News Writer Relationship Specialty Start Date End Date Eric Venegas MD [address] [place] [id number] PCP - General Family Medicine 07/29/22 documented as of this encounter
== END ==
PROVIDERS: PCP Family Medicine; Referring Provider Family Medicine; Visit Provider Family Medicine
DX: M19.041 Primary osteoarthritis, right hand (principal); M85.841 Other specified disorders of bone density and structure, right hand
CPT/HCPCS: 73130

== ENCOUNTER 2023-09-06 17:03 | Emergency (ER) | payer MEDICARE, OTHER, SELFPAY ==
[2023-09-06] VITALS (9 sets, daily range): BP systolic 163–173; BP diastolic 71–103; PULSE 54–68; RESP 16–23; TEMP 36.4; O2SAT 95–100; BMI 28.3
--- NOTE | 2023-09-06 17:23 | DI.CT.S_ITS ---
PROCEDURE: CT HEAD/BRAIN WO CON INDICATIONS: dizziness TECHNIQUE: Noncontrast 4.5 mm thick angled axial sections acquired from the foramen magnum to the vertex, with coronal and sagittal reformats. For radiation dose reduction, the following was used: automated exposure control, adjustment of mA and/or kV according to patient size. COMPARISON: [facility], CT, HEAD WITHOUT CONTRAST, 03/23/2016, 17:00. FINDINGS: Image quality: Excellent. CSF spaces: Basal cisterns are patent. No extra-axial fluid collections. Ventricles are normal in size and shape. Brain: No midline shift. No intracranial masses or hemorrhage. Pollard-white matter interface is normal. Skull and face: Calvarium and visualized facial bones are intact, without suspicious lesions. Sinuses: Visualized sinuses and mastoids are clear. IMPRESSION: Normal CT of the brain Approved by: Willian Malone M.D. on 09/06/2023 at 17:14
--- NOTE | 2023-09-06 17:23 | DI.RAD.S_ITS ---
PROCEDURE: XR CHEST 1V INDICATIONS: chest pain TECHNIQUE: One view of the chest was acquired. COMPARISON: [facility], [place], XR CHEST 2V, 05/30/2020, 8:22. [facility], , CHEST 1 VIEW, 03/23/2016, 17:06. FINDINGS: Surgical changes and devices: None. Lungs and pleura: Lungs are clear. No pleural effusions or pneumothorax. Mediastinum: Mediastinal contours appear normal. Heart size is normal. Bones and chest wall: No suspicious bony lesions. Overlying soft tissues appear unremarkable. Healed right posterior rib fractures. IMPRESSION: No acute cardiopulmonary abnormality is seen. Dictated by: Emigdio Barrow M.D. on 09/06/2023 at 18:25 Approved by: Emigdio Barrow M.D. on 09/06/2023 at 18:25
[2023-09-06 18:24] LABS: Bacteria Urine Occasional (0-1); Culture Indicated Urine Specimen Cultured; RBC Urine 0-1/HPF (0-5/HPF); Squamous Epithelial Cell Urine 0-1 /HPF (0-5/HPF); WBC Urine 0-1/HPF (0-5/HPF)
[2023-09-06 19:58] LABS: Add Manual Diff / Slide Review NO; Basophils Absolute Auto 100 /uL (0-100); Basophils Percent Auto 1.4 % (0-2); Eosinophils Absolute Auto 200 /uL (0-450); Hematocrit 38.1 % (36-46); Hemoglobin 13.1 g/dL (12.0-16.0); Lymphocytes Absolute Auto 1500 /uL (1100-4500); Lymphocytes Percent Auto 33.4 % (25-40); Mean Corpuscular HGB Conc 34.3 % (30-36); Mean Corpuscular Hemoglobin 29.3 PG (26-34); Mean Corpuscular Volume 85.5 fL (80-100); Monocytes Absolute Auto 400 /uL (0-900); Monocytes Percent Auto 8.4 % (3-14); Neutrophils Absolute Auto 2400 /uL (1500-7000); Neutrophils Percent Auto 52.8 % (50-75); Platelet Count 182 X10^3/uL (150-400); Red Blood Cell Count 4.46 X10^6/uL (4.0-5.2); Red Cell Distribution Width 14.3 % (11.6-14.8); White Blood Cell Count 4.6 X10^3/uL (4.5-11.0)
[2023-09-06 20:08] LABS: Alanine Aminotransferase 46 IU/L (<35); Albumin 4.4 g/dL (3.5-5.0); Albumin Globulin Ratio 1.4 (1.0-2.8); Alkaline Phosphatase 105 U/L (38-126); Aspartate Aminotransferase 50 IU/L (14-36); BUN Creatinine Ratio 30.2 (6-22); Bilirubin Total 0.6 mg/dL (0.2-1.3); Blood Urea Nitrogen 16 mg/dL (7-17); Calcium 9.2 mg/dL (8.4-10.2); Carbon Dioxide 25 mmol/L (22-32); Chloride 104 mmol/L (98-107); Creatine Kinase 72 U/L (30-135); Estimated Glomerular Filt Rate > 60 mL/min (>60); Globulin 3.2 g/dL (1.7-4.1); Glucose 87 mg/dL (80-110); Magnesium 2.1 mg/dL (1.6-2.3); Potassium 4.3 mmol/L (3.4-5.1); Sodium 136 mmol/L (137-145); Total Protein 7.6 g/dL (6.3-8.2)
[2023-09-06 20:19] LABS: Troponin I < 0.012 ng/mL (0.01-0.034)
[2023-09-06 20:22] LABS: INR 1.6 (0.9-1.3); Prothrombin Time 18.7 SECONDS (9.4-12.5)
[2023-09-06 20:25] LABS: PTT Partial Thromboplastin Tim 39 SECONDS (25.1-36.5)
[2023-09-06 20:32] LABS: HEMOLYSIS 20 (0-50); Lipase 376 U/L (23-300)
[2023-09-07] VITALS (7 sets, daily range): BP systolic 137–161; BP diastolic 60–70; PULSE 51–55; RESP 13–25; O2SAT 96–99
--- NOTE | 2023-09-07 01:55 | ED_ITS ---
HPI - General Adult General Chief complaint: Dizziness Stated complaint: Light headed, BP 174/70 HR 57 Time Seen by Provider: 09/07/23 01:54 Source: patient Mode of arrival: Ambulatory History of Present Illness HPI narrative: 67-year-old woman with a history of cardiac disease, stent placement about a year ago, hyperlipidemia and hypertension treated with metoprolol who presents with an episode of feeling ?not right?. She is somewhat concerned because when she had her cardiac events that led to the stent she had very minimal symptoms she was not able to clearly identify. She notes that she had her RSV and COVID shots 5 days ago and noted significant fevers and myalgias for approximately 24 hours after that. She is been doing well until today when she was at work and in the early afternoon she began to feel somewhat lightheaded, dizzy low-grade headache she drank quite a bit of water did not seem to help. She is increasingly nauseated and went outside to see if this might help clear her head. She then called her and they went to the grocery store to check her blood pressure and noted that it was elevated with a low heart rate. They do not remember the specifics. At that point they came to the emergency department for further evaluation. She states that she does have a blood pressure cuff at home has not been checking regularly is taking her metoprolol regularly. She has not been having chest pain, dyspnea, orthopnea, palpitations, lower extremity edema, she describes no additional neurologic symptoms. Related Data Home Medications Medication Instructions Recorded Confirmed No Known Home Medications 01/18/22 01/18/22 Allergies Allergy/AdvReac Type Severity Reaction Status Date / Time hydrocodone [HYDROCODONE] AdvReac Unknown VOMIT Verified 01/19/22 15:23 Review of Systems Review of Systems Narrative: Pertinent positive and negative findings as per HPI Patient History Medical History (Updated 09/07/23 @ 02:22 by Taina Poon MD) Hyperlipidemia Hypertension Coronary artery disease Social History household members: spouse Smoking Status: Never smoker alcohol intake: current Smoking Status: Never smoker alcohol intake frequency: a few times a week Substance Use Type: does not use Exam Initial Vital Signs Initial Vital Signs: Vital Signs Temperature 97.5 F L 09/06/23 17:08 Pulse Rate 56 L 09/06/23 17:08 Respiratory Rate 16 09/06/23 17:08 Blood Pressure 173/103 H 09/06/23 17:08 Pulse Oximetry 100 09/06/23 17:08 Oxygen Delivery Method Room Air 09/06/23 17:08 General: Healthy appearing, in no acute distress. Able to give a complete and coherent history. Well-nourished well-developed HEENT: Moist mucous membranes, normal sclera with reactive pupils, tympanic membranes are pearly almaraz bilaterally, she has no cervical adenopathy Neck: No JVD, supple Respiratory: Lungs are clear to auscultation, no wheezing no rales no rhonchi. Full and symmetrical air movement Cardiac: Regular rate and rhythm no murmurs no bruits Abdomen: Soft, nontender, good bowel tones, no flank pain Skin: Warm and dry, no rashes Neurologic: Grossly neurologically intact with no obvious asymmetries or abnormalities Extremities: No trauma, well perfused Psych: Cooperative, appropriate insight and affect Course Orders Ordered: ED Orders 09/06/23 17:23 CT head/brain wo con Stat XR chest 1V Stat EKG-12 Lead Stat 09/06/23 17:30 Urine Culture Stat Urine Microscopic Stat 09/06/23 19:45 Complete Blood Count AUTO DIFF Stat Comprehensive Metabolic Panel Stat Lipase Stat Magnesium Stat PTT Partial Thromboplastin Harry Stat Prothrombin Time INR Stat Troponin & CK Cardiac Panel Stat Vital Signs Vital signs: Vital Signs - 8 hr 09/06/23 20:57 09/06/23 21:00 09/06/23 21:30 Pulse Rate 55 L 68 59 L Respiratory Rate 23 Blood Pressure Pulse Oximetry 100 98 98 Oxygen Delivery Method Room Air Room Air Room Air 09/06/23 22:00 09/06/23 22:30 09/06/23 23:00 Pulse Rate 58 L 54 L 54 L Respiratory Rate 20 22 20 Blood Pressure Pulse Oximetry 98 95 97 Oxygen Delivery Method Room Air Room Air 09/06/23 23:30 09/06/23 23:44 09/06/23 23:44 Pulse Rate 55 L 58 L Respiratory Rate 19 Blood Pressure 163/71 H Pulse Oximetry 98 98 Oxygen Delivery Method 09/07/23 00:00 09/07/23 00:00 Pulse Rate 55 L Respiratory Rate 25 H Blood Pressure 138/63 Pulse Oximetry 96 Oxygen Delivery Method Medical Decision Making Lab Data 09/06/23 19:45 09/06/23 19:45 Labs: Lab Results 09/06/23 09/06/23 Range/Units 17:30 19:45 WBC 4.6 (4.5-11.0) X10^3/uL RBC 4.46 (4.0-5.2) X10^6/uL Hgb 13.1 (12.0-16.0) g/dL Hct 38.1 (36-46) % MCV 85.5 (80-100) fL MCH 29.3 (26-34) PG MCHC 34.3 (30-36) % RDW 14.3 (11.6-14.8) % Plt Count 182 (150-400) X10^3/uL Neut % (Auto) 52.8 (50-75) % Lymph % (Auto) 33.4 (25-40) % [place] % (Auto) 8.4 (3-14) % Eos % (Auto) 4.0 (2-4) % Baso % (Auto) 1.4 (0-2) % Neut # (Auto) 2400 (9692-5509) /uL Lymph # (Auto) 1500 (1200-5330) /uL [place] # (Auto) 400 (0-900) /uL Eos # (Auto) 200 (0-450) /uL Baso # (Auto) 100 (0-100) /uL PT 18.7 H (9.4-12.5) SECONDS INR 1.6 H (0.9-1.3) APTT 39 H (25.1-36.5) SECONDS Sodium 136 L (137-145) mmol/L Potassium 4.3 (3.4-5.1) mmol/L Chloride 104 (98-107) mmol/L Carbon Dioxide 25 (22-32) mmol/L BUN 16 (7-17) mg/dL Creatinine 0.53 (0.52-1.04) mg/dL Estimated GFR > 60 (>60) mL/min BUN/Creatinine Ratio 30.2 H (6-22) Glucose 87 (80-110) mg/dL Calcium 9.2 (8.4-10.2) mg/dL Magnesium 2.1 (1.6-2.3) mg/dL Total Bilirubin 0.6 (0.2-1.3) mg/dL AST 50 H (14-36) IU/L ALT 46 H (<35) IU/L Alkaline Phosphatase 105 (38-126) U/L Total Creatine Kinase 72 (30-135) U/L Troponin I < 0.012 (0.01-0.034) ng/mL Total Protein 7.6 (6.3-8.2) g/dL Albumin 4.4 (3.5-5.0) g/dL Globulin 3.2 (1.7-4.1) g/dL Albumin/Globulin Ratio 1.4 (1.0-2.8) Lipase 376 H (23-300) U/L Urine RBC 0-1/hpf (0-5/HPF) Urine WBC 0-1/hpf (0-5/HPF) Ur Squamous Epith Cells 0-1 /hpf (0-5/HPF) Urine Bacteria Occasional (0-1) (None) Ur Culture Indicated? Specimen cultured Urine Dip Bedside Urine Glucose Negative Bedside Urine Bilirubin - Negative Bedside Urine Ketone - Negative Urine Specific [place] 1.005 Bedside Urine Occult Blood - Negative Bedside Urine pH 7 Bedside Urine Protein - Negative Bedside Urine Urobilinogen - Negative Bedside Urine Nitrite - Negative Bedside Urine Leukocytes + 70 Esterase Point of care testing: Urine Dip Bedside Urine Glucose Negative Bedside Urine Bilirubin - Negative Bedside Urine Ketone - Negative Urine Specific [place] 1.005 Bedside Urine Occult Blood - Negative Bedside Urine pH 7 Bedside Urine Protein - Negative Bedside Urine Urobilinogen - Negative Bedside Urine Nitrite - Negative Bedside Urine Leukocytes + 70 Esterase MDM Narrative Medical decision making narrative: CC: Dizziness in the vague feeling of unease Complicating co-morbidities: Coronary artery disease hypertension hyperlipidemia Data collected from: patient, Medical records reviewed: Medical records are not available, history is obtained from the patient Differential considered: Stroke, viral syndrome, adverse reaction after recent immunizations, hypertensive crisis, acute coronary syndrome Exam documented above, pertinent findings include: Exam is entirely benign. Lab Test results independently reviewed as above. Pertinent findings: CBC is reassuring Chemistries are appropriate, she does have minimally elevated AST and ALT with normal bilirubin and alkaline phosphatase Urine does not show urinary tract infection Independently reviewed EKG sinus rhythm at a rate of 60. Normal intervals, normal axis, no acute ischemic changes Imaging studies independently reviewed: CT scan of the head shows no acute intracranial abnormalities, bleeding or mass effect Chest x-ray is reassuring no acute pulmonary disease Discussion: 67-year-old woman presents with a sense of unease, dizziness head tightness onset early this afternoon. On initial arrival she was quite anxious and concerned that she was having some type of coronary event. Initial blood pressure was elevated at 170 3/103. There were no additional interventions and blood pressure has come down nicely most recently 138/68 with a heart rate of 55. She has had extended ER visit due to volumes and has been on telemetry much of that time. There have been no cardiac rhythm significant changes. Her exam is entirely benign labs are reassuring I am not seeing any sign of acute bacterial infection, stroke, acute coronary event or alternate explanation that would require additional imaging or hospitalization. Her blood pressure may be trending high however with most of the numbers actually looking more reassuring my recommendation was to check her blood pressure on a regular basis and review overall readings an average blood pressure findings with her primary care doctor. At this point she is safe for discharge. I have encouraged her to continue all current medications without changes Discharge Plan Departure Patient Disposition: Home Clinical Impression: Dizziness Instructions: DI for Dizziness-Nonvertigo Activity Restrictions/Additional Instructions: Thank you for coming in today Your workup today does not show any signs of bleeding inside your head, a stroke, acute heart attack, severe bacterial infection, electrolyte abnormalities, heart or liver problems or urinary tract infection. Your blood pressure was elevated on arrival however it has trended down nicely. Sometimes it is hard to tell if it is blood pressure that is causing your symptoms or these symptoms that are elevating your blood pressure. At this point I am not seeing any life-threatening abnormalities that would require additional workup or hospitalization. I am glad that you are feeling slightly better. I do not know if these symptoms might be related to your recent COVID and RSV vaccines 5 days ago but I suppose that is certainly a possibility. Regarding your blood pressure, I would recommend that you take your blood pressure daily at home to discuss with your primary doctor. It is the average blood pressure reading that is going to be important in helping to side of blood pressure medications need to be changed. If your blood pressure reading is elevated, you do not need to come to the emergency department unless the elevated blood pressure reading is also associated with stroke-like symptoms, severe headache chest pressure or shortness a breath. Blood pressure, even very high readings, is best treated with oral medication as an outpatient to gradually lower numbers to the desired goals. If you find that you are getting worse or develop any new symptoms, please feel free to return to the emergency department for further evaluation. Prescriptions: No Action No Known Home Medications Referrals: Eric Venegas MD [Primary Care Provider] - Stand Alone Forms: Patient Portal/API
== END 2023-09-07 02:34 | disposition home or self-care (01) ==
PROVIDERS: Emergency Medicine; Emergency Provider Emergency Medicine; PCP Family Medicine
DX: R42 Dizziness and giddiness (principal); R51.9 Headache, unspecified; I10 Essential (primary) hypertension
CPT/HCPCS: 36415; 70450; 71045; 80053; 81003; 81015; 82550; 83690; 83735; 84484; 85025; 85610; 85730; 87086; 87147; 93005; 93010; 99284

== ENCOUNTER 2024-02-09 08:22 | Emergency (ER) | payer MEDICARE, OTHER, SELFPAY ==
[2024-02-09 08:30] VITALS: BP 155/70; PULSE 51; RESP 14; TEMP 36.6; O2SAT 97; BMI 28.3
--- NOTE | 2024-02-09 08:31 | DI.RAD.S_ITS ---
PROCEDURE: XR WRIST RT MIN 3V INDICATIONS: pain after fall TECHNIQUE: 3 views of the wrist were acquired. COMPARISON: None. FINDINGS: Bones: Acute impacted fracture involving distal radius is seen with fracture line extending to radiocarpal joint space and slight dorsal tilt of the distal radius at the fracture site. No suspicious bony lesions. Soft tissues: Surrounding soft tissue swelling is seen. No suspicious soft tissue calcifications. IMPRESSION: Acute comminuted, impacted and slightly displaced intra-articular fracture of distal radius as above. Dictated by: Elijah Espinoza M.D. on 02/09/2024 at 9:00 Approved by: Elijah Espinoza M.D. on 02/09/2024 at 9:00
--- NOTE | 2024-02-09 09:07 | ED.GENADULT ---
HPI - General Adult General Chief complaint: Extremity Injury, Upper Stated complaint: Thinks she broke her right Wrist Time Seen by Provider: 02/09/24 08:31 Source: patient Mode of arrival: Ambulatory Limitations: no limitations History of Present Illness HPI narrative: Patient is a 68-year-old female who is here for evaluation of a right wrist pain. She was outside working in his barn when she slipped and fell and landed on an outstretched hand. Does have some elbow discomfort but most of the discomfort is coming from her right wrist. No other injuries from the event. Related Data Previous Rx's Medication Instructions Recorded oxycodone-acetaminophen 5 mg-325 1 tab PO Q6H PRN pain #14 tabs 02/09/24 mg tablet (Percocet) Allergies Allergy/AdvReac Type Severity Reaction Status Date / Time hydrocodone [HYDROCODONE] AdvReac Unknown VOMIT Verified 01/19/22 15:23 Review of Systems Musculoskeletal Musculoskeletal: Reports system reviewed and no additional complaints, except as documented Integumentary/Breasts Skin/Breast: Reports system reviewed and no additional complaints, except as documented Hematologic/Lymphatic On Anticoagulants: No Patient History Medical History Hyperlipidemia Hypertension Coronary artery disease Social History household members: spouse Smoking Status: Never smoker alcohol intake: current Smoking Status: Never smoker alcohol intake frequency: a few times a week Substance Use Type: does not use Exam Initial Vital Signs Initial Vital Signs: Vital Signs Temperature 97.8 F 02/09/24 08:30 Pulse Rate 51 L 02/09/24 08:30 Respiratory Rate 14 02/09/24 08:30 Blood Pressure 155/70 H 02/09/24 08:30 Pulse Oximetry 97 02/09/24 08:30 Oxygen Delivery Method Room Air 02/09/24 08:30 Const General: cooperative and comfortable Cardio Pulses: radial pulses present on the right Skin General: no rashes or lesions noted Neuro Sensory Exam: no sensory deficits noted Extrem Other: Discomfort with palpation or any movement of the right wrist. She was able to flex and extend of the right elbow. Right shoulder is unremarkable. Right hand is unremarkable. Procedures Orthopedic Splinting/Casting Injury #1: Side: right Upper Extremity Injury Location: wrist Upper Extremity Immobilizer: sugar tong splint Other Orthopedic Equipment: other (Sling) Post splinting neuro exam: no change Post splinting vascular exam: no change Placed by: Provider Course Orders Ordered: ED Orders 02/09/24 08:31 XR wrist RT min 3V Stat Discontinued Medications Oxycodone/Acetaminophen (Oxycodone/Acetaminophen 5/325 Tablet) 1 tab PO NOW ONE Stop: 02/09/24 09:08 Last Admin: 02/09/24 09:16 Dose: 1 tab Documented By: VALERIY Vital Signs Vital signs: Vital Signs - 8 hr 02/09/24 08:30 Temperature 97.8 F Pulse Rate 51 L Respiratory Rate 14 Blood Pressure 155/70 H Pulse Oximetry 97 Oxygen Delivery Method Room Air Medical Decision Making Imaging Data Extremity x-ray #1: Radiologist's Impression: PROCEDURE: XR WRIST RT MIN 3V INDICATIONS: pain after fall TECHNIQUE: 3 views of the wrist were acquired. COMPARISON: None. FINDINGS: Bones: Acute impacted fracture involving distal radius is seen with fracture line extending to radiocarpal joint space and slight dorsal tilt of the distal radius at the fracture site. No suspicious bony lesions. Soft tissues: Surrounding soft tissue swelling is seen. No suspicious soft tissue calcifications. IMPRESSION: Acute comminuted, impacted and slightly displaced intra-articular fracture of distal radius as above. MDM Narrative Medical decision making narrative: Patient is neurovascularly intact. Has a right wrist fracture that was splinted as described above. No other injuries from the event. Will discharge patient home in a splint. She was given care instructions and return precautions. She expressed understanding and agreement. Discharge Plan Departure Patient Disposition: Home Clinical Impression: Fracture of wrist Instructions: DI for Wrist Fracture, How to Take Care of Your Splint Activity Restrictions/Additional Instructions: The splint that was placed today does need to be treated like a cast. You need to keep it on and keep it clean and keep it dry. You will need follow-up with the orthopedic surgeons. Please contact them with the number provided below. Return to the emergency department for new symptoms. Prescriptions: New oxycodone-acetaminophen [Percocet] 5-325 mg tablet 1 tab PO Q6H PRN (Reason: pain) Qty: 14 0RF Referrals: Willian Mayorga MD [Physician] - Eric Venegas MD [Primary Care Provider] - Stand Alone Forms: Patient Portal/API
[2024-02-09] MEDS: OXYCODONE/ACETAMINOPHEN 5/325 TABLET 1 TAB PO (09:16)
[2024-02-09 09:54] VITALS: BP 121/53; PULSE 47; O2SAT 98
[2024-02-09] MEDS: ONDANSETRON 4 MG ODT SL (10:11)
== END 2024-02-09 10:38 | disposition home or self-care (01) ==
PROVIDERS: Emergency Provider Emergency Medicine; PCP Family Medicine
DX: S52.571A Other intraarticular fracture of lower end of right radius, initial encounter for closed fracture (principal); W01.0XXA Fall on same level from slipping, tripping and stumbling without subsequent striking against object, initial encounter
CPT/HCPCS: 29125; 73110; 99283; 99284

== ENCOUNTER → 2024-07-16 15:19 | Outpatient (CLI) | payer MEDICARE, OTHER, SELFPAY ==
--- NOTE | 2024-07-16 15:20 | DI.MG.S_ITS ---
BILATERAL DIGITAL SCREENING MAMMOGRAM 3D/2D WITH CAD: 07/16/2024 CLINICAL: Routine screening. Comparison is made to exams dated: 12/29/2021 mammogram, 10/04/2019 mammogram, and 11/23/2016 mammogram - [facility]. The breasts are almost entirely fatty (category a/<25% glandular tissue). Current study was also evaluated with a Computer Aided Detection (CAD) system. No significant masses, calcifications, or other findings are seen in either breast. There has been no significant interval change. IMPRESSION: NEGATIVE There is no mammographic evidence of malignancy. A 1 year screening mammogram is recommended. Based on the Tyrer Cuzick model (a risk assessment model) the patient's lifetime risk is 4.4% and her 10 year risk is 2.3%. According to the ACR, ACS, and NCCN guidelines, an annual breast MRI exam along with mammogram is recommended if the patient's lifetime risk is 20% or greater. This exam was interpreted at Station ID: [id number]. NOTE: For mammograms, a report in lay terms will be sent to the patient. Approximately 15% of breast malignancies will not be visualized mammographically. In the management of a palpable breast mass, a negative mammogram must not discourage biopsy of a clinically suspicious lesion. Electronically Signed By: Javier nielsen/shelton:07/17/2024 09:04:12 letter sent: Normal Exam ACR BI-RADS Category 1: Negative
== END ==
LOC: MAMMO 15:19
PROVIDERS: PCP Family Medicine; Referring Provider Family Medicine; Visit Provider Family Medicine
DX: Z12.31 Encounter for screening mammogram for malignant neoplasm of breast (principal); R92.313 Mammographic fatty tissue density, bilateral breasts
CPT/HCPCS: 77063; 77067

== ENCOUNTER → 2024-07-30 16:06 | Outpatient (CLI) | payer MEDICARE, OTHER, SELFPAY ==
--- NOTE | 2024-07-30 | DI.RAD.S_ITS ---
PROCEDURE: XR HIP W PEL IF DONE JORDAN MIN 4V INDICATIONS: BILATERAL HIP PAIN TECHNIQUE: AP pelvis with lateral view(s) of the both hips hip(s). COMPARISON: [facility], CR, XR HIP W PEL IF DONE BILAT 2V, 06/13/2018, 11:27. FINDINGS: Bones: CAM configuration both femoral head neck junctions may predispose to femoral acetabular impingement. 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 Both SI joints are normal. Soft tissues: No soft tissue swelling, calcification or mass. 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 Dictated by: Yinka Yadav M.D. on 07/31/2024 at 10:53 Approved by: Yinka Yadav M.D. on 07/31/2024 at 10:54
== END ==
PROVIDERS: PCP Family Medicine; Referring Provider Family Medicine; Visit Provider Family Medicine
DX: M25.551 Pain in right hip (principal); M25.552 Pain in left hip; M16.0 Bilateral primary osteoarthritis of hip
CPT/HCPCS: 73522

== ENCOUNTER → 2024-10-01 10:50 | Outpatient (CLI) | payer MEDICARE, OTHER, SELFPAY ==
--- NOTE | 2024-10-01 10:52 | DI.RAD.S_ITS ---
PROCEDURE: XR CHEST 2V INDICATIONS: COUGH TECHNIQUE: 2 views of the chest were acquired. COMPARISON: [facility], CR, XR CHEST 1V, 09/06/2023, 17:49. [facility], CR, XR CHEST 2V, 05/30/2020, 8:22. FINDINGS: Surgical changes and devices: None. Lungs and pleura: No dense airspace disease or pleural effusions. Mediastinum: Normal heart size Bones and chest wall: Unremarkable IMPRESSION: No acute radiographic abnormality Dictated by: Javire Muniz M.D. on 10/01/2024 at 13:32 Approved by: Javier Muniz M.D. on 10/01/2024 at 13:33
== END ==
LOC: RAD 10:51
PROVIDERS: PCP Family Medicine; Referring Provider Family Medicine; Visit Provider Family Medicine
DX: R05.1 Acute cough (principal)
CPT/HCPCS: 71046

== ENCOUNTER → 2025-07-24 15:32 | Outpatient (CLI) | payer MEDICARE, OTHER, SELFPAY ==
--- NOTE | 2025-07-24 15:34 | DI.MG.S_ITS ---
MM screening mammo BI: 07/24/2025. BI-RADS: 1 CLINICAL: 69-year old female for bilateral screening mammogram. Tyrer-Cuzick lifetime risk of 3.4%. No personal or first-degree family history of breast cancer. PRIOR EXAMS 07/16/2024, 12/29/2021, 10/04/2019, 11/23/2016. MAMMOGRAPHY TECHNIQUE: 2D and 3D (tomosynthesis) digital mammographic views obtained, with additional images as needed for full coverage. Current study was also evaluated with a Computer Aided Detection (CAD) system. DENSITY A. The breasts are almost entirely fatty. MAMMOGRAPHY FINDINGS Bilateral: No suspicious mass, asymmetry, microcalcification, or other abnormality seen. IMPRESSION: * No evidence of malignancy. RECOMMENDATIONS Bilateral * Annual screening mammography. OVERALL ASSESSMENT CATEGORY BI-RADS-1: Negative. The [employer] recommends annual screening mammography beginning at age 40 for women with average risk of breast cancer. ELECTRONICALLY SIGNED: Eric Bardales M.D. on 07/24/2025 at 07:04:29 PM PT Interpreting Station ID: [id number]
== END ==
PROVIDERS: PCP Family Medicine; Referring Provider Family Medicine; Visit Provider Family Medicine
DX: Z12.31 Encounter for screening mammogram for malignant neoplasm of breast (principal); R92.343 Mammographic extreme density, bilateral breasts
CPT/HCPCS: 77063; 77067